=== PATIENT | female | born 1965 | race Caucasian/White ===

== ENCOUNTER → 2018-05-27 | Outpatient (CLI) | payer BC | END | disposition home or self-care (01) | LOC: C.LABSPEC 13:53 → MERGE 13:53 | PROVIDERS: ATTEND Obstetrics & Gynecology | DX: N76.2 Acute vulvitis (principal) ==

== ENCOUNTER → 2018-06-03 | Outpatient (CLI) | payer BC ==
[2018-06-06 17:40] LABS: HERPES SIMPLEX AB IGG-1 < 0.90 INDEX (< 0.90); HERPES SIMPLEX AB IGG-2 1.07 INDEX (< 0.90)
== END | disposition home or self-care (01) ==
LOC: C.LAB1850 15:00
PROVIDERS: ATTEND Obstetrics & Gynecology
DX: A60.00 Herpesviral infection of urogenital system, unspecified (principal)

== ENCOUNTER 2020-10-26 16:55 | Inpatient (IN) ==
--- OUTSIDE RECORDS SUMMARY | 2020-10-26 16:57 | External Medical Summary | Continuity of Care Document ---
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 Payam Disla Start: 04-Jun-2018 Quantity: 28 Refills: 0 valACYclovir HCl - 500 MG Oral Tablet; TAKE 1 TABLET T WICE A DAY FOR 5 DAYS Payam Disla Start: 14-Mar-2019 Quantity: 10 Refills: 1 Wellbutrin SR 200 MG Oral Tablet Extende d Release 12 Hour; TAKE 1 TABLET TWICE DAILY. Refills: 0 LaMICtal 100 MG Oral Tablet; TAKE 1 TABLET TWICE DAILY. Refills: 0 busPIRone HCl TABS; 20 mg daily Refills: 0 Procedures History of breast biopsy Status: Complet ed History of laparoscopy Status: Completed Immunizations Immunizations not documented Plan of Treatment Planned Observations Planned Goals not documented Results No Known Results Results not documented
--- OUTSIDE RECORDS SUMMARY | 2020-10-26 16:58 | External Medical Summary | Continuity of Care Document ---
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 Payam Disla Start: 04-Jun-2018 Quantity: 28 Refills: 0 busPIRone HCl TABS; 20 mg daily Refills: 0 LaMICtal 100 MG Oral Tablet; TAKE 1 TABLET TWICE DAILY. Refills: 0 Wellbutrin SR 200 MG Oral Tablet Extende d Release 12 Hour; TAKE 1 TABLET TWICE DAILY. Refills: 0 Procedures History of breast biopsy Status: Complet ed History of laparoscopy Status: Completed Immunizations Immunizations not documented Plan of Treatment Planned Observations Planned Goals not documented Results No Known Results Results not documented
[2020-10-26 17:42] LABS: Basophils # (auto) 0.02 K/uL (0-0.2); Basophils % (auto) 0.2 %; Eosinophils # (auto) 0.04 K/uL (0-0.5); Eosinophils % (auto) 0.5 %; Hematocrit (blood only) 40.6 % (37-47); Hemoglobin 14.1 g/dL (12.0-16.0); Immature Granulocytes # (auto) 0.01 K/uL (0.00-0.02); Immature Granulocytes % (auto) 0.1 %; Lymphocytes # (auto) 2.09 K/uL (1.2-3.4); Lymphocytes % (auto) 24.6 %; Mean Corpuscular Hemoglobin 31.5 pg (25-34); Mean Corpuscular Hgb Conc 34.7 g/dL (32-36); Mean Corpuscular Volume 90.6 fL (80-100); Mean Platelet Volume 8.9 fL (7.4-10.4); Monocytes # (auto) 0.55 K/uL (0.11-0.59); Monocytes % (auto) 6.5 %; Neutrophils # (auto) 5.77 K/uL (1.4-6.5); Neutrophils % (auto) 68.1 %; Platelet Count 369 K/uL (130-400); RDW Coefficient of Variation 13.1 % (11.5-14.5); RDW Standard Deviation 43.3 fL (36.4-46.3); Red Blood Count 4.48 M/uL (4.2-5.4); White Blood Count 8.48 K/uL (4.8-10.8)
[2020-10-26 18:01] LABS: D Dimer 290 ug/L FEU (0-500); Partial Thromboplastin Ratio 1.1; Partial Thromboplastin Time 30.2 Seconds (21.0-31.0); Prothrombin Time 10.5 Seconds (9.0-12.0)
[2020-10-26 18:05] LABS: Alanine Aminotransferase 18 U/L (12-78); Albumin Level 4.2 gm/dl (3.4-5.0); Aspartate Aminotransferase 10 U/L (15-37); Blood Urea Nitrogen 11 mg/dl (7-18); Carbon Dioxide 28 mmol/L (21-32); Chloride 108 mmol/L (98-107); Creatinine Clr Calc Pharmacy 61.5 ml/min; Est GFR (African American) 99.2; Est GFR (Non-African American) 85.6; Glucose 89 mg/dl (70-99); Lipase 126 U/L (73-393); Potassium 3.9 mmol/L (3.5-5.1); Sodium 141 mmol/L (136-145)
--- NOTE | 2020-10-26 18:05 | XRay Report ---
SINGLE VIEW CHEST CLINICAL HISTORY: Atypical chest pain. FINDINGS: An AP, portable, upright chest radiograph is compared to study dated 11/29/2018. The cardiom ediastinal silhouette is unremarkable. The lungs and pleural spaces are clear. No pneumothorax is see n. The bony thorax is grossly intact. IMPRESSION: No active disease in the chest. ACT 112: Negative or not required by law. Electronically signed by: Efrain Carreno M.D. 10/26/2020 6:03 PM
[2020-10-26 18:10] LABS: Albumin Globulin Ratio 1.1 (0.9-2); Alkaline Phosphatase 90 U/L (45-117); Bilirubin,Total 0.3 mg/dl (0.2-1); Globulin 3.7 gm/dl (2.5-4.0); Total Protein 7.9 gm/dl (6.4-8.2); Troponin I < 0.015 ng/ml (0-0.045)
[2020-10-26] MEDS ORDERED: NITROGLYCERIN SL 0.4 MG/TAB TAB SL STA (19:28)
--- NOTE | 2020-10-26 19:50 | Emergency Department Note ---
Impression & Plan Left-sided chest pain ED Provider Note INFORMANT: Patient ED PROVIDER(S): Arnaud Hackett MD CHIEF COMPLAINT: Chest pain PLAN: Disposition: Admitted Condition: Good MEDICAL DECISION MAKING: Patient presented with intermittent chest pain. Her ECG suggested a subtle lateral depression. Her pain was at a lower intensity than she was experiencing prior to arrival. She was monitored. Her CBC, chemistry panel, LFTs, lipase and troponin initially were negative. The patient had some increased pain and was given a sublingual nitroglycerin. She had already taken aspirin at home. The nitroglycerin resolved her pain. Nitropaste was applied. A repeat ECG and troponin were normal. Given the findings I discussed a work-up in the hospital with the patient. She was in agreement. I placed a [facility] He evaluated the patient in the ER for further management. Triage Nursing notes reviewed and agree them. Vital Signs: reviewed and remarkable for no significant abnormalities Differential diagnosis: Cardiac ischemia, aortic dissection, pulmonary embolism, pneumothorax, pneumonia, pericarditis, myocarditis, esophageal rupture, GERD, cholecystitis, pancreatitis, musculoskeletal, as well as other pathologies. Diagnostics interpreted by me: ECG: #1 revealed normal sinus rhythm at 82 bpm. Left atrial enlargement. Septal Q waves. There is about 1/[address] depression. No ST elevation. No PVCs. Normal QRS and axis. ECG #2 reveals Rate: 66 Rhythm:Normal sinus [place]:Normal QRS:Normal ST segements:No elevation or depression Other:No PACs or PVCs Cardiac Monitoring: Cardiac monitoring ordered by me: The patient was placed on continuous cardiac monitoring and observed. It revealed a normal sinus rhythm at 75 beats per minute without ectopy or evidence of dysrhythmia. Imaging studies: Chest x-ray. Findings: A chest x-ray was performed and revealed no pneumothorax, effusion, infiltrate, pulmonary edema, free air under the diaphragm, or wide mediastinum. Impression: No acute disease. [facility]ation[facility] HPI: The patient is a 55 year old female who presents to the Emergency Room with complaints of left-sided chest pain. This started 2 days ago and is intermittent. The patient also notes the following associated symptoms, tingling in the left arm. The patient has taken no medication for relieving factors. Current pain is rated as 1/10. Pt denies LOC, headache, fevers, chills, diaphoresis, visual changes, neck pain, chest pain, breathing difficulties, nausea, vomiting, abdominal pain, back pain, melena, hematochezia, urinary symptoms, numbness, weakness, lymphadenopathy, rash, or other compl aints. ROS: See above HPI for pertinent positives & negatives. A total of 10 systems reviewed and were otherwise negative. PAST MEDICAL HISTORY:See Below, anxiety PAST SURGICAL HISTORY:See Below, FAMILY HISTORY:See Below, COPD SOCIAL HISTORY:See Below, HOME MEDICATIONS:See Below ALLERGIES:See Below VITALS:See Below PHYSICAL EXAMINATION: GENERAL: Awake, alert, well-appearing, in no distress HENT: Normocephalic, atraumatic. Oropharynx unremarkable. EYES: Normal conjunctiva. Sclera non-icteric. NECK: Inspection normal. Non-tender. Supple. No nuchal rigidity. FROM. No masses. RESPIRATORY: Clear to auscultation. No wheezes. No rales. Normal respiratory effort. CARDIAC: Normal rate. Normal rhythm. No murmurs. No rubs. Extremities warm and well perfused. Pulses equal. No JVD. GI: Soft, non-distended. No tenderness to palpation. No rebound or guarding. No masses. RECTAL: Deferred. MUSCULOSKELETAL: Atraumatic. Chest examination reveals no tenderness. The back is symmetrical on inspection without obvious abnormality. There is no CVA tenderness to palpation. No joint edema. LOWER EXTREMITIES: Calves are equal size bilaterally and non-tender. No edema. No discoloration. NEURO: Normal sensorium. No sensory or motor deficits noted. SKIN: No rash or jaundice noted. ED COURSE: OBSERVATION NOTE: Indication: Chest pain Patient, with chest pain and COPD family History, was first seen at 1730 hrs and the observation time began at 1730 hrs and was necessary in order to determine the etiology of the chest pain and avoid unnecessary admission . Upon re-ev aluation, 4 hours of observation revealed that the patient should be admitted due to ECG changes and concern for cardiac chest pain. Disposition date and time 212910/26/20. Arnaud Hackett MD Past Med/Surg History Medical History (Updated 10/26/20 @ 19:48 by Arnaud Hackett MD) Anxiety Bipolar disorder Cyclothymic disorder Depression HSV infection Prediabetes Surgical History (Updated 11/29/18 @ 18:27 by Christiano Castillo MD) S/P lumpectomy of breast Family History (Updated 11/29/18 @ 18:28 by Christiano Castillo MD) Mother Diabetes COPD (chronic obstructive pulmonary disease) Social History (Updated 11/29/18 @ 18:30 by Christiano Castillo MD) Smoking Status: Never smoker Hx Alcohol Use: Yes ("very occasional wine") Hx Substance Use: No Preferred Language: Estonian Communication Ability: Effective Hospitality [employer] Required: No Beliefs That Will Affect Care: None Current Living Situation: Spouse Feels Safe at Home: Yes Assistive Devices: Glasses Allergies Allergies Allergy/AdvReac Type Severity Reaction Status Date / Time No Known Allergies Allergy Verified 10/26/20 18:12 Home Meds Home Medications Medication Instructions Recorded Confirmed bupropion HCl 200 mg PO DAILY 11/29/18 10/26/20 lamotrigine 150 mg PO DAILY 11/29/18 10/26/20 Lactobacillus acidophilus 10,000 mmu cells PO DAILY 10/26/20 10/26/20 [Probiotic] Saccharomyces boulardii [Florastor] 250 mg PO DAILY 10/26/20 10/26/20 aspirin 650 mg PO ONCE 10/26/20 10/26/20 buspirone 22.5 mg PO BID 10/26/20 10/26/20 Results & Data (ED) Vital Signs Vital Signs - 24 hr 10/26/20 16:57 10/26/20 17:14 10/26/20 18:01 Temperature 37 C Temperature Source Oral Pulse Rate 85 Pulse Rate [Bilateral] Pulse Rate from SpO2 Sensor Pulse Rhythm [Bilateral] Pulse Strength [Bilateral] Respiratory Rate 16 Respiratory Effort / Characteristics Non-Labored Respiratory Depth Normal Respiratory Pattern Blood Pressure 156/74 H Blood Pressure [Left Arm] Blood Pressure Mean 101 Blood Pressure Mean [Left Arm] Pulse Oximetry 96 99 99 Oxygen Delivery Method Room Air Room Air Sepsis Recent Fever Within 48 Hours No Sepsis New/Unexplained Change in Mental Status No Sepsis Action Taken by Nursing No Action Required 10/26/20 19:57 10/26/20 20:00 10/26/20 20:15 Temperature Temperature Source Pulse Rate 69 70 75 Pulse Rate [Bilateral] 67 Pulse Rate from SpO2 Sensor 69 76 Pulse Rhythm [Bilateral] Regular Pulse Strength [Bilateral] Normal Respiratory Rate 13 16 15 Respiratory Effort / Characteristics Non-Labored Spontaneous Respiratory Depth Normal Respiratory Pattern Regular Blood Pressure 151/86 H 129/92 122/73 Blood Pressure [Left Arm] 151/86 H Blood Pressure Mean 102 103 87 Blood Pressure Mean [Left Arm] 107 Pulse Oximetry 100 99 99 Oxygen Delivery Method Room Air Room Air Room Air Sepsis Recent Fever Within 48 Hours Sepsis New/Unexplained Change in Mental Status Sepsis Action Taken by Nursing 10/26/20 20:30 10/26/20 21:00 10/26/20 21:30 Temperature Temperature Source Pulse Rate 72 76 82 Pulse Rate [Bilateral] Pulse Rate from SpO2 Sensor 69 73 76 Pulse Rhythm [Bilateral] Pulse Strength [Bilateral] Respiratory Rate 16 18 18 Respiratory Effort / Characteristics Respiratory Depth Respiratory Pattern Blood Pressure 136/78 127/74 109/73 Blood Pressure [Left Arm] Blood Pressure Mean 89 80 80 Blood Pressure Mean [Left Arm] Pulse Oximetry 100 100 98 Oxygen Delivery Method Room Air Room Air Room Air Sepsis Recent Fever Within 48 Hours Sepsis New/Unexplained Change in Mental Status Sepsis Action Taken by Nursing Laboratory Data Result diagrams: 10/26/20 17:31 10/26/20 17:31 Lab Results 10/26/20 10/26/20 10/26/20 Range/Units 17:31 17:31 17:31 WBC 8.48 (4.8-10.8) K/uL RBC 4.48 (4.2-5.4) M/uL Hgb 14.1 (12.0-16.0) g/dL Hct 40.6 (37-47) % MCV 90.6 (80-100) fL MCH 31.5 (25-34) pg MCHC 34.7 (32-36) g/dL RDW Std Deviation 43.3 (36.4-46.3) fL RDW Coeff of Sary 13.1 (11.5-14.5) % Plt Count 369 (130-400) K/uL MPV 8.9 (7.4-10.4) fL Immature Gran % (Auto) 0.1 % Neut % (Auto) 68.1 % Lymph % (Auto) 24.6 % Gillespie % (Auto) 6.5 % Eos % (Auto) 0.5 % Baso % (Auto) 0.2 % Neut # (Auto) 5.77 (1.4-6.5) K/uL Lymph # (Auto) 2.09 (1.2-3.4) K/uL Gillespie # (Auto) 0.55 (0.11-0.59) K/uL Eos # (Auto) 0.04 (0-0.5) K/uL Baso # (Auto) 0.02 (0-0.2) K/uL Immature Gran # (Auto) 0.01 (0.00-0.02) K/uL PT 10.5 (9.0-12.0) Seconds INR 1.0 (0.9-1.1) APTT 30.2 (21.0-31.0) Seconds PTT Ratio 1.1 D-Dimer 290 (0-500) ug/L FEU Sodium 141 (136-145) mmol/L Potassium 3.9 (3.5-5.1) mmol/L Chloride 108 H (98-107) mmol/L Carbon Dioxide 28 (21-32) mmol/L Anion Gap 5.0 (3-11) BUN 11 (7-18) mg/dl Creatinine 0.78 (0.6-1.2) mg/dl Est Cr Clr Drug Dosing 61.5 ml/min Est GFR ( Amer) 99.2 Est GFR (Non-Af Amer) 85.6 BUN/Creatinine Ratio 14.0 (10-20) Glucose 89 (70-99) mg/dl Calcium 9.0 (8.5-10.1) mg/dl Magnesium 2.2 (1.8-2.4) mg/dl Total Bilirubin 0.3 (0.2-1) mg/dl AST 10 L (15-37) U/L ALT 18 (12-78) U/L Alkaline Phosphatase 90 (45-117) U/L Troponin I < 0.015 (0-0.045) ng/ml Total Protein 7.9 (6.4-8.2) gm/dl Albumin 4.2 (3.4-5.0) gm/dl Globulin 3.7 (2.5-4.0) gm/dl Albumin/Globulin Ratio 1.1 (0.9-2) Lipase 126 (73-393) U/L 12/22/20 Range/Units 20:37 WBC (4.8-10.8) K/uL RBC (4.2-5.4) M/uL Hgb (12.0-16.0) g/dL Hct (37-47) % MCV (80-100) fL MCH (25-34) pg MCHC (32-36) g/dL RDW Std Deviation (36.4-46.3) fL RDW Coeff of Sary (11.5-14.5) % Plt Count (130-400) K/uL MPV (7.4-10.4) fL Immature Gran % (Auto) % Neut % (Auto) % Lymph % (Auto) % Gillespie % (Auto) % Eos % (Auto) % Baso % (Auto) % Neut # (Auto) (1.4-6.5) K/uL Lymph # (Auto) (1.2-3.4) K/uL [place] # (Auto) (0.11-0.59) K/uL Eos # (Auto) (0-0.5) K/uL Baso # (Auto) (0-0.2) K/uL Immature Gran # (Auto) (0.00-0.02) K/uL PT (9.0-12.0) Seconds INR (0.9-1.1) APTT (21.0-31.0) Seconds PTT Ratio D-Dimer (0-500) ug/L FEU Sodium (136-145) mmol/L Potassium (3.5-5.1) mmol/L Chloride (98-107) mmol/L Carbon Dioxide (21-32) mmol/L Anion Gap (3-11) BUN (7-18) mg/dl Creatinine (0.6-1.2) mg/dl Est Cr Clr Drug Dosing ml/min Est GFR ( Amer) Est GFR (Non-Af Amer) BUN/Creatinine Ratio (10-20) Glucose (70-99) mg/dl Calcium (8.5-10.1) mg/dl Magnesium (1.8-2.4) mg/dl Total Bilirubin (0.2-1) mg/dl AST (15-37) U/L ALT (12-78) U/L Alkaline Phosphatase (45-117) U/L Troponin I < 0.015 (0-0.045) ng/ml Total Protein (6.4-8.2) gm/dl Albumin (3.4-5.0) gm/dl Globulin (2.5-4.0) gm/dl Albumin/Globulin Ratio (0.9-2) Lipase (73-393) U/L Administered Medications Discontinued Medications Nitroglycerin (Nitroglycerin Sl 0.4 Mg/Tab Tab) 0.4 mg SL NOW STA Stop: 10/26/20 19:29 Last Admin: 10/26/20 19:57 Dose: 0.4 mg Documented by: [id number] Nitroglycerin (Nitroglycerin 2% Ointment 30gm Tube) 0.25 inch EXT NOW STA Stop: 10/26/20 21:42 Last Admin: 10/26/20 21:59 Dose: 0.25 inch Documented by: [id number] Discharge Plan Visit Data Chief Complaint: Chest Pain Stated Complaint: CHEST PAIN, ARM PAIN ED Provider: Arnaud Hackett Discharge Problem: Left-sided chest pain Forms Stand Alone Forms: [facility] Prescriptions Prescriptions: No Action aspirin 325 mg Tablet,Delayed Release (Dr/Ec) 650 mg PO ONCE RF: 0 buspirone 15 mg tablet 22.5 mg PO BID RF: 0 Saccharomyces boulardii [Florastor] 250 mg Capsule 250 mg PO DAILY RF: 0 Probiotic 10 billion cell Capsule 10,000 mmu cells PO DAILY RF: 0 lamotrigine 150 mg tablet 150 mg PO DAILY RF: 0 bupropion HCl 200 mg tablet sustained-release 12 hr 200 mg PO DAILY RF: 0
[2020-10-26] MEDS ORDERED: NITROGLYCERIN 2% OINTMENT 30GM TUBE EXT STA (21:41)
[2020-10-26 22:25] LABS: Magnesium 2.2 mg/dl (1.8-2.4)
--- NOTE | 2020-10-26 22:43 | History & Physical Report ---
Date of Service October 26, 2020 Assessment & Plan (1) Chest pain: Relieved by nitroglycerin Rule out ACS breast lobular carcinoma in situ status post surgery mood disorder, at baseline prediabetes as per records. Hemoglobin A1c of 6 from 2017 OBS PCU Aspirin for CAD prevention until ACS ruled out. Follow troponin in a.m. Exercise stress echo if a.m. troponin within normal limits Check hemoglobin A[facility]c [facility] Full code Text document was generated using [employer] voice recognition software. It may contain grammatical or spelling errors. Kindly contact undersigned for clarification of any documentation item in question. History of Present Illness Chief Complaint: Left sided chest pain Primary Care Provider: Fernanda Baptiste DO History obtained from patient and records. Medical history significant for breast lobular carcinoma in situ status post surgery, mood disorder, prediabetes as per records. Last confinement 2018 for chest pain. 2D echo unremarkable. Patient never went for recommended outpatient stress test as symptoms later on attributed to GERD as symptoms improved with PPI course for a few weeks. 2 days history of achy intermittent left-sided chest pain going to the left arm and left neck. Not related to exertion. 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 No unusual cough, S OB, diaphoresis symptoms. Some personal stressors. Different from chest pain from 2019 admission. Patient took aspirin at home. Discomfort relieved by nitroglycerin at the ER. Medical History as above Surgical History : Uterine ablation, breast biopsy, breast surgery, diagnostic laparoscopy for endometriosis Family History : Heart disease, COPD, diabetes Personal/Social history : Non-smoker, occasional EtOH intake, retired RN Allergies Allergy/AdvReac Type Severity Reaction Status Date / Time No Known Allergies Allergy Verified 10/26/20 18:12 Home Medications Medication Instructions Recorded Confirmed Type bupropion HCl 200 mg PO DAILY 11/29/18 10/26/20 History lamotrigine 150 mg PO DAILY 11/29/18 10/26/20 History Lactobacillus acidophilus 10,000 mmu cells PO DAILY 10/26/20 10/26/20 History [Probiotic] Saccharomyces boulardii [Florastor] 250 mg PO DAILY 10/26/20 10/26/20 History aspirin 650 mg PO ONCE 10/26/20 10/26/20 History buspirone 22.5 mg PO BID 10/26/20 10/26/20 History Past Med/Surg History Medical History (Updated 10/26/20 @ 19:48 by Arnaud Hackett MD) Anxiety Bipolar disorder Cyclothymic disorder Depression HSV infection Prediabetes Surgical History (Updated 11/29/18 @ 18:27 by Christiano Castillo MD) S/P lumpectomy of breast Family History (Updated 11/29/18 @ 18:28 by Christiano Castillo MD) Mother Diabetes COPD (chronic obstructive pulmonary disease) Social History (Updated 11/29/18 @ 18:30 by Christiano Castillo MD) Smoking Status: Never smoker Hx Alcohol Use: Yes ("very occasional wine") Hx Substance Use: No Preferred Language: German Communication Ability: Effective [employer]inator Required: No Beliefs That Will Affect Care: None Current Living Situation: Spouse Feels Safe at Home: Yes Assistive Devices: Glasses Review of Systems Review of Systems: As per HPI, all 10 systems reviewed, all other ROS negative Physical Exam Physical Exam: GENERAL: Comfortable, pleasant, no respiratory distress SKIN: Normal color, warm HEENT: Bespectacled, pink palpebral conjunctivae, no ptosis, moist buccal mucosa NECK : Supple, no tenderness CHEST : CTA, no tenderness HEART : RRR, no obvious murmurs ABDOMEN: Some distention, nontender EXTREMITIES : No LE swelling/tenderness, no other conspicuous deformities noted NEUROLOGIC : Coherent, no facial asymmetry, no other gross focality Results & Data Results & Data ([facility]) Vital Signs (Past 12 Hours) Vital Signs Temp Pulse Pulse Resp BP BP Pulse Ox 10/26/20 21:30 82 18 109/73 98 10/26/20 21:00 76 18 127/74 100 10/26/20 20:30 72 16 136/78 100 10/26/20 20:15 75 15 122/73 99 10/26/20 20:00 70 16 129/92 99 10/26/20 19:57 69 67 13 151/86 H 151/86 H 100 10/26/20 18:01 99 10/26/20 17:14 99 10/26/20 16:57 37 C 85 16 156/74 H 96 Laboratory Results Laboratory Results WBC 8.48 K/uL (4.8-10.8) 10/26/20 17:31 RBC 4.48 M/uL (4.2-5.4) 10/26/20 17: Hgb 14.1 g/dL (12.0-16.0) 10/26/20: Hct 40.6 % (37-47) 10/26/20: MCV 90.6 fL (80-100) 10/26/20 17: MCH 31.5 pg (25-34) 10/26/20: MCHC 34.7 g/dL (32-36) 10/26/20: RDW Std Deviation 43.3 fL (36.4-46.3) 10/26/20: RDW Coeff of Sary 13.1 % (11.5-14.5) 10/26/20: Plt Count 369 K/uL (130-400) 10/26/20: MPV 8.9 fL (7.4-10.4) 10/26/20: Immature Gran % (Auto) 0.1 % 10/26/20: Neut % (Auto) 68.1 % 10/26/20: Lymph % (Auto) 24.6 % 10/26/20: Parmer % (Auto) 6.5 % 10/26/20: Eos % (Auto) 0.5 % 10/26/20: Baso % (Auto) 0.2 % 10/26/20: Neut # (Auto) 5.77 K/uL (1.4-6.5) 10/26/20: Lymph # (Auto) 2.09 K/uL (1.2-3.4) 10/26/20: Parmer # (Auto) 0.55 K/uL (0.11-0.59) 10/26/20: Eos # (Auto) 0.04 K/uL (0-0.5) 10/26/20: Baso # (Auto) 0.02 K/uL (0-0.2) 10/26/20: Immature Gran # (Auto) 0.01 K/uL (0.00-0.02) 10/26/20: PT 10.5 Seconds (9.0-12.0) 10/26/20: INR 1.0 (0.9-1.1) 10/26/20 17:31 APTT 30.2 Seconds (21.0-31.0) 10/26/20 17:31 PTT Ratio 1.1 10/26/20 17:31 D-Dimer 290 ug/L FEU (0-500) 10/26/20 17:31 Sodium 141 mmol/L (136-145) 10/26/20 17:31 Potassium 3.9 mmol/L (3.5-5.1) 10/26/20 17:31 Chloride 108 mmol/L (98-107) H 10/26/20 17:31 Carbon Dioxide 28 mmol/L (21-32) 10/26/20 17:31 Anion Gap 5.0 (3-11) 10/26/20 17:31 BUN 11 mg/dl (7-18) 10/26/20 17:31 Creatinine 0.78 mg/dl (0.6-1.2) 10/26/20 17:31 Est Cr Clr Drug Dosing 61.5 ml/min 10/26/20 17:31 Est GFR ( Amer) 99.2 10/26/20 17:31 Est GFR (Non-Af Amer) 85.6 10/26/20 17:31 BUN/Creatinine Ratio 14.0 (10-20) 10/26/20 17:31 Glucose 89 mg/dl (70-99) 10/26/20 17:31 Calcium 9.0 mg/dl (8.5-10.1) 10/26/20 17:31 Magnesium 2.2 mg/dl (1.8-2.4) 10/26/20 17:31 Total Bilirubin 0.3 mg/dl (0.2-1) 10/26/20 17:31 AST 10 U/L (15-37) L 10/26/20 17:31 ALT 18 U/L (12-78) 10/26/20 17:31 Alkaline Phosphatase 90 U/L (45-117) 10/26/20 17:31 Troponin I < 0.015 ng/ml (0-0.045) 10/26/20 20:37 Total Protein 7.9 gm/dl (6.4-8.2) 10/26/20 17:31 Albumin 4.2 gm/dl (3.4-5.0) 10/26/20 17:31 Globulin 3.7 gm/dl (2.5-4.0) 10/26/20 17:31 Albumin/Globulin Ratio 1.1 (0.9-2) 10/26/20 17:31 Lipase 126 U/L (73-393) 10/26/20 17:31 Diagnostic Findings Chest x-ray as per my interpretation elevated right hemidiaphragm EKG as per my interpretation : Rate 65, NSR, normal axis, no ischemia Code Status & VTE Plan VTE Prophylaxis Plan VTE Prophylaxis will be ordered: Yes
[2020-10-27] MEDS ORDERED: LACTATED RINGER'S 1,000 ML IV SCH (01:50)
[2020-10-27] MEDS ORDERED: PROMETHAZINE HCL 6.25 MG in SODIUM CHLORIDE 0.9% 50 ML IV PRN (01:50)
[2020-10-27] MEDS ORDERED: MoRPHine SULFATE 2 MG/ML CARP IV PRN (01:50)
[2020-10-27] MEDS ORDERED: traMADol HCL 50 MG TABLET PO PRN (01:50)
[2020-10-27] MEDS ORDERED: NITROGLYCERIN SL 0.4 MG/TAB TAB SL PRN (01:50)
[2020-10-27] MEDS ORDERED: LORazepam 0.25 MG/0.5 ML VIAL IV PRN (01:50)
[2020-10-27] MEDS ORDERED: ACETAMINOPHEN 325 MG TAB PO PRN (01:50)
[2020-10-27] MEDS ORDERED: INFLUENZA VIRUS QUAD VACCINE 0.5 ML SYR IM ONE (02:43)
[2020-10-27] MEDS ORDERED: INFLUENZA ADMINISTRATION CHARGE ONE (02:43)
[2020-10-27 05:33] LABS: Partial Thromboplastin Ratio 1.1; Partial Thromboplastin Time 30.5 Seconds (21.0-31.0)
[2020-10-27 05:41] LABS: Basophils # (auto) 0.01 K/uL (0-0.2); Basophils % (auto) 0.1 %; Eosinophils % (auto) 1.2 %; Hematocrit (blood only) 40.3 % (37-47); Hemoglobin 13.5 g/dL (12.0-16.0); Immature Granulocytes # (auto) 0.01 K/uL (0.00-0.02); Immature Granulocytes % (auto) 0.1 %; Lymphocytes # (auto) 3.09 K/uL (1.2-3.4); Lymphocytes % (auto) 35.7 %; Mean Corpuscular Hgb Conc 33.5 g/dL (32-36); Mean Corpuscular Volume 92.6 fL (80-100); Mean Platelet Volume 8.9 fL (7.4-10.4); Monocytes # (auto) 0.58 K/uL (0.11-0.59); Monocytes % (auto) 6.7 %; Neutrophils # (auto) 4.86 K/uL (1.4-6.5); Neutrophils % (auto) 56.2 %; Platelet Count 319 K/uL (130-400); RDW Standard Deviation 44.4 fL (36.4-46.3); Red Blood Count 4.35 M/uL (4.2-5.4); White Blood Count 8.65 K/uL (4.8-10.8)
[2020-10-27 05:48] LABS: BUN Creatinine Ratio 20.4 (10-20); Blood Urea Nitrogen 16 mg/dl (7-18); Calcium 8.8 mg/dl (8.5-10.1); Carbon Dioxide 31 mmol/L (21-32); Chloride 106 mmol/L (98-107); Creatinine Clr Calc Pharmacy 63.1 ml/min; Est GFR (African American) 102.3; Est GFR (Non-African American) 88.3; Glucose 89 mg/dl (70-99); Potassium 3.6 mmol/L (3.5-5.1); Sodium 141 mmol/L (136-145)
[2020-10-27 05:53] LABS: Chol HDL Ratio 2; Cholesterol 159 mg/dl (0-200); HDL Cholesterol 78 mg/dl; LDL Cholesterol Calculated 64 mg/dl; Triglycerides 86 mg/dl (0-150); Troponin I < 0.015 ng/ml (0-0.045); VLDL Cholesterol 17 mg/dl
[2020-10-27 07:01] LABS: Estimated Average Glucose 120 mg/dl; Hemoglobin A1C 5.8 % (4.5-5.6)
[2020-10-27 08:04] VITALS: BP 93/51; TEMP 97.7; O2SAT 99
[2020-10-27] MEDS ORDERED: busPIRone 7.5 MG TAB PO SCH (09:00)
[2020-10-27] MEDS ORDERED: ASPIRIN 81 MG ECTAB PO SCH (09:00)
[2020-10-27] MEDS ORDERED: buPROPion SR 100 MG TABCR PO SCH (09:00)
[2020-10-27] MEDS ORDERED: ENOXAPARIN INJ 40 MG/0.4 ML SYR SQ SCH (09:00)
[2020-10-27] MEDS ORDERED: SACCHAROMYCES BOULARDII 250 MG CAP PO SCH (09:00)
[2020-10-27] MEDS ORDERED: lamoTRIgine 100 MG TAB PO SCH (09:00)
[2020-10-27] MEDS ORDERED: ADVANCED PROBIOTIC 1250 MG CAPSULE PO SCH (09:00)
--- NOTE | 2020-10-27 11:38 | Hospitalist Progress Note ---
Date of Service October 27, 2020 Assessment & Plan (1) Chest pain: Chest Pain Risk factors: Prediabetes Troponin:Negative CXR: No active disease in the chest. Exercise Stress Test: Normal exercise stress echocardiogram. No echocardiographic or ECG evidence of myocardial ischemia having achieved heart rate adequate for diagnostic purpose. EF:55-60% Normal Lipid Panel HbA1C:5.8 Received Aspirin Symptoms resolved Plan to discharge home Prediabetes HbA1C:5.8 Lifestyle modifications Breast lobular carcinoma in situ S/P Surgery Mood disorder Stable Continue home medications DVT Px: Lovenox SQ Code Status Full code Disposition Plan to discharge home today Admission and Anticipated Discharge Date Admission Date: October 26, 2020 Subjective Patient is seen and examined at bedside States feeling much better Had exercise stress test earlier today Chest pain completely resolved Denies dyspnea, dizziness, nausea, abdominal pain Offers no complaints Eager to get discharged Review of Systems Review of Systems: All systems reviewed & are unremarkable except as noted in HPI & below Physical Exam Physical Exam: Physical Exam: Vitals signs as noted above General Appearance:Moderately built and nourished, no apparent distress Head: normocephalic, Atraumatic Eyes: normal inspection, EOMI Neck: supple, Trachea midline Respiratory/Chest: Normal breath sounds, CTA Cardiovascular: S1, S2, No murmur Abdomen/GI:Soft, Non tender, Bowel sounds present Extremities/Musculoskelatal:normal inspection, no edema Neurologic/Psych:AAOX3, grossly no focal neurological deficits Skin: normal color, warm Results & Data Results & Data ([facility] [place]) Vital Signs (Past 12 Hours) Vital Signs Temp Pulse Pulse Resp BP BP Pulse Ox 10/27/20 07:00 36.5 C 67 74 18 93/51 L 99 10/27/20 05:12 36.7 C 63 20 131/75 100 10/27/20 03:01 64 10/27/20 02:21 36.6 C 63 15 123/68 100 10/27/20 01:46 36.6 C 64 12 123/68 100 10/27/20 01:33 70 16 98/61 L 96 10/27/20 01:01 61 15 98 10/27/20 01:00 61 16 92/54 L 98 10/27/20 00:31 62 15 98 Laboratory Results Short CBC 10/26/20 10/27/20 Range/Units 17:31 05:08 WBC 8.48 8.65 (4.8-10.8) K/uL Hgb 14.1 13.5 (12.0-16.0) g/dL Hct 40.6 40.3 (37-47) % Plt Count 369 319 (130-400) K/uL BMP 10/26/20 10/27/20 17:31 05:08 Sodium 141 141 Potassium 3.9 3.6 Chloride 108 H 106 Carbon Dioxide 28 31 BUN 11 16 Creatinine 0.78 0.76 Glucose 89 89 Calcium 9.0 8.8 Cardiac Enzymes 10/26/20 10/26/20 10/27/20 Range/Units 17:31 20:37 05:08 Troponin I < 0.015 < 0.015 < 0.015 (0-0.045) ng/ml Liver Function 10/26/20 Range/Units 17:31 Total Bilirubin 0.3 (0.2-1) mg/dl AST 10 L (15-37) U/L ALT 18 (12-78) U/L Alkaline Phosphatase 90 (45-117) U/L Albumin 4.2 (3.4-5.0) gm/dl
--- NOTE | 2020-10-27 12:02 | Discharge Summary ---
Date of Service October 27, 2020 Admission HPI Per Admitting Provider History obtained from patient and records. Medical history significant for breast lobular carcinoma in situ status post surgery, mood disorder, prediabetes as per records. Last confinement 2018 for chest pain. 2D echo unremarkable. Patient never went for recommended outpatient stress test as symptoms later on attributed to GERD as symptoms improved with PPI course for a few weeks. 2 days history of achy intermittent left-sided chest pain going to the left arm and left neck. Not related to exertion. 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 No unusual cough, S OB, diaphoresis symptoms. Some personal stressors. Different from chest pain from 2019 admission. Patient took aspirin at home. Discomfort relieved by nitroglycerin at the ER. Medical History as above Surgical History : Uterine ablation, breast biopsy, breast surgery, diagnostic laparoscopy for endometriosis Family History : Heart disease, COPD, diabetes Personal/Social history : Non-smoker, occasional EtOH intake, retired sr. manager Exam Per Admitting Provider Physical Exam Physical Exam: GENERAL: Comfortable, pleasant, no respiratory distress SKIN: Normal color, warm HEENT: Bespectacled, pink palpebral conjunctivae, no ptosis, moist buccal mucosa NECK : Supple, no tenderness CHEST : CTA, no tenderness HEART : RRR, no obvious murmurs ABDOMEN: Some distention, nontender EXTREMITIES : No LE swelling/tenderness, no other conspicuous deformities noted NEUROLOGIC : Coherent, no facial asymmetry, no other gross focality Principal Diagnosis Chest pain Prediabetes Discharge Data Allergies Allergy/AdvReac Type Severity Reaction Status Date / Time No Known Allergies Allergy Verified 10/26/20 18:12 Consultations 10/26/20 21:42 ED Decision to Admit Stat Procedures Performed CXR:No active disease in the chest. Exercise stress test:Exercise Stress Test: Normal exercise stress echocardiogram. No echocardiographic or ECG evidence of myocardial ischemia having achieved heart rate adequate for diagnostic purpose. EF:55-60% Hospital Course (1) Chest pain: Chest Pain Risk factors: Prediabetes Troponin:Negative CXR: No active disease in the chest. Exercise Stress Test: Normal exercise stress echocardiogram. No echocardiographic or ECG evidence of myocardial ischemia having achieved heart rate adequate for diagnostic purpose. EF:55-60% Normal Lipid Panel HbA1C:5.8 Received Aspirin Symptoms resolved Plan to discharge home Prediabetes HbA1C:5.8 Lifestyle modifications Breast lobular carcinoma in situ S/P Surgery Mood disorder Stable Continue home medications DVT Px: Lovenox SQ Code Status Full code Disposition Plan to discharge home today Total Time Total Time Spent Total Time Spent (In Minutes): 38 MINUTES Discharge Plan Discharge Items Patient Disposition: Home - Self-Care Reason For Visit: CP Discharge Diagnosis: Chest pain Prediabetes Activity: Per Instructions section Lifting: Gradually increase as tolerated Exercise/Sports: Gradually increase as tolerated Non-emergency contact: Primary Care Provider Call non-emergency contact if: you have any medication questions, your symptoms worsen, your pain is not controlled, your pain is worsening, your pain is unusual for you, your pain is concerning for you and you have a fever Follow-up/Referrals: Fernanda Baptiste DO [Primary Care Provider] - (Date & Time 11/02/2020 11:50 AM Provider Fernanda Baptiste DO Department Internal Medicine [facility] ) Diet: Heart Healthy Addtl Attending Provider Instructions: Follow-up with your primary care physician Dr.Amanda Baptiste on 11/02/2020 11:50 AM Consider being evaluated by your seed district sales manager if you have recurrence of chest pain. Discussed with your primary care physician regarding aspirin 81 mg if you are considering to take aspirin on a daily basis. Seek immediate medical attention if your symptoms reoccur or worsen Pending Studies at Discharge: No Stand-Alone Forms: My [facility] [employer], Smoking Cessation Medications and DC Order Prescriptions: Continued buspirone 15 mg tablet 22.5 mg PO BID RF: 0 Saccharomyces boulardii [Florastor] 250 mg Capsule 250 mg PO DAILY RF: 0 Probiotic 10 billion cell Capsule 10,000 mmu cells PO DAILY RF: 0 lamotrigine 150 mg tablet 150 mg PO DAILY RF: 0 bupropion HCl 200 mg tablet sustained-release 12 hr 200 mg PO DAILY RF: 0 Discontinued aspirin 325 mg Tablet,Delayed Release (Dr/Ec) 650 mg PO ONCE RF: 0 Discharge Orders: Discharge Order (Routine); Ordered 10/27/20 Ordered By: Christiano Castillo Admission Data Admit Date/Time: 10/26/20 22:37 Attending Provider: Christiano Castillo Admit Provider: Santos Giles Primary Care Provider: Fernanda Baptiste Other Providers: Santos Giles
[2020-10-27 12:23] VITALS: PULSE 74
--- NOTE | 2020-10-27 13:30 | Electrocardiogram Report ---
Test Reason : Blood Pressure : / mmHG Vent. Rate : 074 BPM Atrial Rate : 074 BPM P-R Int : 132 ms QRS Dur : 078 ms QT Int : 426 ms P-R-T Axes : 074 057 063 degrees QTc Int : 472 ms Normal sinus rhythm Normal ECG When compared with ECG of 26-OCT-2020 20:35, No significant change was found Confirmed by Don Landry ([id number]) on 10/27/2020 1:29:53 PM Referred By: REFERRED SELF Confirmed By:Don Landry
--- NOTE | 2020-10-27 16:50 | Electrocardiogram Report ---
Test Reason : Blood Pressure : / mmHG Vent. Rate : 082 BPM Atrial Rate : 082 BPM P-R Int : 128 ms QRS Dur : 074 ms QT Int : 406 ms P-R-T Axes : 075 031 -11 degrees QTc Int : 474 ms Normal sinus rhythm Left atrial enlargement ST depression in Anterolateral leads Abnormal ECG When compared with ECG of 30-NOV-2018 06:32, ST depression in Anterolateral leads now present Confirmed by Don Landry ([id number]) on 10/27/2020 4:50:49 PM Referred By: REFERRED SELF Confirmed By:Don Landry
--- NOTE | 2020-10-27 17:02 | Electrocardiogram Report ---
Test Reason : Blood Pressure : / mmHG Vent. Rate : 066 BPM Atrial Rate : 066 BPM P-R Int : 138 ms QRS Dur : 072 ms QT Int : 418 ms P-R-T Axes : 073 039 044 degrees QTc Int : 438 ms Normal sinus rhythm Minor ST depression in Anterolateral leads When compared with ECG of 26-OCT-2020 17:02, ST depression in Anterolateral leads less pronounced Confirmed by Don Landry ([id number]) on 10/27/2020 5:01:53 PM Referred By: REFERRED SELF Confirmed By:Don Landry
== END 2020-10-27 12:56 | disposition home or self-care (01) | DRG 313 ==
LOC: ED 16:55 → 1E 16:55 → OBSVTOIN 22:37 → 1E 10-27 01:31